=== PATIENT | female | born 1995 | race Caucasian/White ===

== ENCOUNTER 2017-05-20 21:12 | Emergency (ER) | payer MEDICAID, SELFPAY ==
[2017-05-20 21:13] VITALS: BP 115/76; PULSE 84; RESP 16; TEMP 37.5; O2SAT 99; BMI 21.3
[2017-05-20 22:21] LABS: Bacteria 0 SEEN /hpf (None Seen); Mucous, Urine 0 SEEN /hpf (<or=2+); Red Blood Cells-Urine 0 SEEN /hpf (0-5)
[2017-05-20 22:22] LABS: Color, Urine Yellow (Yellow); Glucose, Dipstick Normal (Normal); Ketone-Dipstick Negative (Negative); Leukocyte Esterase-Dipstick 25 /ul (Negative); Nitrite-Dipstick Negative (Negative); Occult Blood-Urine Negative /ul (Negative); Protein-Dipstick Negative (Negative); Urine Bilirubin Dipstick Negative (Negative); Urine Clarity Sl. Cloudy (Clear); Urine Urobilinogen 1 mg/dl (Normal)
[2017-05-20 22:28] LABS: Internal QC Validated? YES +Cl - CLEAR BKGD; Pregnancy, Urine Negative Negative
[2017-05-20 22:30] LABS: Squamous Epithelial Cells - UA 0-5 SEEN /hpf (5-10); White Blood Cells 0-5 SEEN /hpf (0-5)
[2017-05-20 22:33] LABS: Amorphous Sediment 1+ URATE
--- NOTE | 2017-05-20 22:41 | ED.VISSUMM ---
- ER Visit Summary Date of Service: 05/20/17 Chief Complaint: Kidney pain History of Present Illness: The patient is a 22 F who reports kidney pain on the left for the past 2 weeks. Patient states that she went to urgent care on the . Her urine was negative but she is given a 10 day course of Bactrim anyway. Patient is only taken 1 tab of that over the past 4 days. Patient states she has felt lightheaded for the past 2 days. She has felt nauseated. She denies having fever. She has no urinary symptoms. Today the patient states the pain radiates radiated down the back of her left leg to just above the knee. Pain is worse with movement. Physical Examination: Vital signs are unremarkable. Head and neck examination is normal. Heart is regular rate and rhythm. Lung sounds are clear. Abdomen is soft with very mild tenderness in left lower quadrant. There is no guarding or rebound. Hypoactive bowel sounds are noted. Back examination reveals no CVA tenderness. She does have reproducible tenderness in the lower lumbar paraspinals on the left. She has good strength and sensation throughout with strong distal pulses. Test Results: Urinalysis was obtained and normal. No bacteria is appreciated. Urine test is negative. Emergency Department Course and Treatment: Patient will not take any further antibiotics. She was treated with Naprosyn and Flexeril, first doses given here. If her symptoms are secondary to muscle spasm and radiculopathy. Treatment Plan: [] Disposition: Discharge Impression: Lumbar paraspinal spasm with radiculopathy This note was generated with [employer] dictation software. It may contain incorrect words, spelling, and punctuation that were not noted in review of the chart prior to signing ED Disposition - Plan for ED Patient: Disposition: Home or Assisted Living Chief Complaint: Flank Pain Instructions: ED Neck Back Pain General Prescriptions: Naproxen [Naprosyn] 500 mg PO BID PRN #20 tablet Cyclobenzaprine [Flexeril] 10 mg PO TID PRN #20 tablet PRN Reason: Muscle Spasm Referrals: Kaylan Bernabe MD [Primary Care Provider] - 1 Week if not improving
[2017-05-20] MEDS: Naproxen 500 MG Tablet PO (22:50)
--- NOTE | 2017-05-20 22:52 | ED.RN ---
PT GIVES THIS RN FILLED BOTTLE OF BACTRIM TO DISPOSE OF. PLACED IN SHARPS CONTAINER.
== END 2017-05-20 22:52 | disposition home or self-care (01) ==
PROVIDERS: Emergency Provider Emergency Medicine; Family Provider Family Medicine; PCP Family Medicine
DX: R25.2 Cramp and spasm (principal); M54.16 Radiculopathy, lumbar region; Z72.0 Tobacco use
CPT/HCPCS: 81001; 81025; 99283

== ENCOUNTER 2017-08-13 20:10 | Emergency (ER) | payer MEDICAID, SELFPAY ==
[2017-08-13 20:10] VITALS: BP 118/71; PULSE 85; RESP 16; TEMP 36.8; O2SAT 97; BMI 21.9
[2017-08-13] MEDS: Ondansetron ODT 4 MG Tablet 8 MG PO (21:33)
--- NOTE | 2017-08-13 23:23 | ED.VISSUMM ---
- ER Visit Summary Date of Service: 08/13/17 Chief Complaint: Nausea and vomiting History of Present Illness: The patient is a 22 F currently first trimester patient states she had nausea and vomiting with 1 of her other pregnancies. She is Ab0. Sees a PILOT PLANT OPERATOR HELPER in [place] and states she has already had a pelvic ultrasound which showed a single live IUP with positive heart rate. She denies any bleeding. She denies any pelvic pain. She denies any dysuria. She denies any diarrhea or fever. Physical Examination: Well-appearing young female. Vital signs are stable afebrile. She does not look septic or toxic. She is in no distress. HEENT exam normal. Moist mucous membranes. Neck nontender no lymphadenopathy. Lungs clear to auscultation bilaterally. Heart regular rate and rhythm no murmur rate about 85. Abdomen is soft and nontender. Normal bowel sounds. No peritoneal signs. No uterine tenderness. She is moving all 4 extremities. Neurovascular intact. There is no edema or calf tenderness. Neurologically she is awake and alert without focal motor deficits. Back exam is normal. Test Results: None Emergency Department Course and Treatment: Patient was treated with p.o. Zofran. Has been able to hold down p.o. fluids. She was comfortable with not receiving IV fluids because clinically she was not dehydrated. She feels chondral being discharged to home. Treatment Plan: Zofran home pack and prescription. Plenty of fluids and rest. Return if feeling worse. Follow-up with her PILOT PLANT OPERATOR HELPER. Disposition: Discharge Impression: Acute nausea and vomiting First trimester This note was generated with [employer] dictation software. It may contain incorrect words, spelling, and punctuation that were not noted in review of the chart prior to signing ED Disposition - Plan for ED Patient: Chief Complaint: Abd Pain Referrals: Kaylan Bernabe MD [Primary Care Provider] -
--- NOTE | 2017-08-13 23:26 | ED.DCSUM_ITS ---
- ER Visit Summary Date of Service: 08/13/17 Chief Complaint: Nausea and vomiting History of Present Illness: The patient is a 22 F currently first trimester patient states she had nausea and vomiting with 1 of her other pregnancies. She is Ab0. Sees a PRACTICAL NURSE CLINICAL COORDINATOR in [place] and states she has already had a pelvic ultrasound which showed a single live IUP with positive heart rate. She denies any bleeding. She denies any pelvic pain. She denies any dysuria. She denies any diarrhea or fever. Physical Examination: Well-appearing young female. Vital signs are stable afebrile. She does not look septic or toxic. She is in no distress. HEENT exam normal. Moist mucous membranes. Neck nontender no lymphadenopathy. Lungs clear to auscultation bilaterally. Heart regular rate and rhythm no murmur rate about 85. Abdomen is soft and nontender. Normal bowel sounds. No peritoneal signs. No uterine tenderness. She is moving all 4 extremities. Neurovascular intact. There is no edema or calf tenderness. Neurologically she is awake and alert without focal motor deficits. Back exam is normal. Test Results: None Emergency Department Course and Treatment: Patient was treated with p.o. Zofran. Has been able to hold down p.o. fluids. She was comfortable with not receiving IV fluids because clinically she was not dehydrated. She feels chondral being discharged to home. Treatment Plan: Zofran home pack and prescription. Plenty of fluids and rest. Return if feeling worse. Follow-up with her PRACTICAL NURSE CLINICAL COORDINATOR. Disposition: Discharge Impression: Acute nausea and vomiting First trimester This note was generated with [employer] dictation software. It may contain incorrect words, spelling, and punctuation that were not noted in review of the chart prior to signing ED Disposition - Plan for ED Patient: Chief Complaint: Abd Pain Referrals: Kaylan Bernabe MD [Primary Care Provider] -
--- NOTE | 2017-08-13 23:26 | ED.DEP ---
ED Disposition - Plan for ED Patient: Disposition: Home or Assisted Living Chief Complaint: Abd Pain Instructions: ED Nausea Vomiting Prescriptions: Ondansetron [Zofran Odt] 4 mg PO Q4H PRN PRN #14 tab.rapdis PRN Reason: Nausea Referrals: Kaylan Bernabe MD [Primary Care Provider] - 1-2 Days if not improving Additional Instructions: Zofran as needed for nausea. Plenty fluids and rest. Follow-up the PHARMACY DIRECTOR physician.
--- NOTE | 2017-08-13 23:29 | DCINST.ED_ITS ---
ED Disposition - Plan for ED Patient: Disposition: Home or Assisted Living Chief Complaint: Abd Pain Instructions: ED Nausea Vomiting Prescriptions: Ondansetron [Zofran Odt] 4 mg PO Q4H PRN PRN #14 tab.rapdis PRN Reason: Nausea Referrals: Kaylan Bernabe MD [Primary Care Provider] - 1-2 Days if not improving Additional Instructions: Zofran as needed for nausea. Plenty fluids and rest. Follow-up the MACHINE TAPER physician.
[2017-08-13 23:37] VITALS: BP 108/64; PULSE 60; RESP 18; O2SAT 99
== END 2017-08-13 23:38 | disposition home or self-care (01) ==
PROVIDERS: Emergency Provider Emergency Medicine; Family Provider Family Medicine; PCP Family Medicine
DX: O21.9 Vomiting of pregnancy, unspecified (principal); Z3A.01 Less than 8 weeks gestation of pregnancy; O99.331 Smoking (tobacco) complicating pregnancy, first trimester
CPT/HCPCS: 99283